=== PATIENT | male | born 1985 | race Two or more races ===

== ENCOUNTER 2016-11-04 10:50 | Emergency (ER) | payer BC ==
[2016-11-04] MEDS ORDERED: SODIUM CHLORIDE 0.9% 1,000 ML IV ONE (11:05)
[2016-11-04] MEDS ORDERED: LORazepam 2MG/ML-1ML VIAL IV ONE (11:15)
[2016-11-04 11:47] LABS: Basophils # (auto) 0 uL; Basophils % (auto) 0.3 % (0.0-2.0); Eosinophils # (auto) 0 uL; Eosinophils % (auto) 0.1 % (0.0-7.0); Hematocrit 48.1 % (41.0-53.0); Hemoglobin 16.8 g/dL (13.5-17.5); Lymphocytes % (auto) 12.6 % (10.0-50.0); Mean Corpuscular Hgb Conc. 34.9 g/dL (32.0-36.0); Mean Corpuscular Volume 94.5 fL (80.0-100.0); Mean Platelet Volume 7.9 fL (7.4-10.4); Monocytes # (auto) 0.5 uL; Monocytes % (auto) 5.9 % (0.0-12.0); Neutrophils # (auto) 6.4 uL; Neutrophils % (auto) 81.1 % (37.0-80.0); Platelet Count (auto) 343 10^3/uL (140-450); Red Cell Distribution Width 13.4 % (11.6-16.0); White Blood Cell 7.9 10^3/uL (4.4-10.8)
[2016-11-04 12:08] LABS: BUN/Creatinine Ratio 7.7; Bilirubin, Total 0.4 mg/dL (0.2-1.0); Calcium 8.1 mg/dL (8.5-10.1); Potassium 3.4 mmol/L (3.5-5.1); Total Protein 7.8 g/dL (6.4-8.2)
[2016-11-04 12:41] VITALS: BP 131/77
== END 2016-11-04 12:50 | disposition home or self-care (01) ==
LOC: ER 10:56
DX: F10.239 Alcohol dependence with withdrawal, unspecified (principal); R00.2 Palpitations; Y90.1 Blood alcohol level of 20-39 mg/100 ml
CPT/HCPCS: 36415; 80053; 80307; 80320; 85025; 93005; 94761; 96361; 96374; 99285; J2060; J7030